=== PATIENT | female | born 1990 | race Caucasian/White ===

== ENCOUNTER 2017-09-28 08:12 | Emergency (ER) | payer OTHER ==
[~2017-09-28] VITALS: Ht 160 cm; Wt 66.2 kg
[2017-09-28 09:16] LABS: INFLUENZA A PATIENT NEGATIVE (NEGATIVE); INFLUENZA B PATIENT NEGATIVE (NEGATIVE)
[2017-09-28] MEDS ORDERED: HYDR115S2 PO (09:23)
[2017-09-28] MEDS ORDERED: AZIT250T PO (09:23)
--- NOTE | 2017-09-28 09:23 | PHYS DOC ---
Past History Past Medical History: Asthma, Ovarian Cyst, UTI, Other Past Surgical History: No Surgical History, Other Smoking: Non-smoker Alcohol Use: Rarely Drug Use: None Adult General Chief Complaint Chief Complaint: [facility]U [facility] 27-year-old male patient complaining of nasal congestion and cough and myalgia for the last 3 days that gradually getting worse. Patient complaining of subjective fever and chills and headache and sore throat and earache and not feeding quit. Patient denies vomiting, diarrhea, urinary symptoms, . Patient had sick contact at work. Review of Systems Review of Systems Constitutional: Reports fever and chills [] Eyes: Denies change in visual acuity, redness, or eye pain [] HENT: Reports nasal congestion and sore throat [] Respiratory: Reports cough and shortness of breath [] Cardiovascular: No additional information not addressed in HPI [] GI: Denies abdominal pain, nausea, vomiting, bloody stools or diarrhea [] : Denies dysuria or hematuria [] Musculoskeletal: Denies back pain or joint pain [] Integument: Denies rash or skin lesions [] Neurologic: Denies headache, focal weakness or sensory changes [] Endocrine: Denies polyuria or polydipsia [] All other systems were reviewed and found to be within normal limits, except as documented in this note. Allergies Allergies Allergies Coded Allergies Type Severity Reaction Last Updated Verified bupropion Allergy Severe HIVES 01/30/16 Yes Physical Exam Physical Exam Constitutional: Well developed, well nourished, mild distress, non-toxic appearance. [] HENT: Normocephalic, atraumatic, bilateral external ears normal, oropharynx moist, tonsillar erythema, no oral exudates, nasal congestion Eyes: PERRLA, EOMI, conjunctiva normal, no discharge. [] Neck: Normal range of motion, no tenderness, supple, no stridor. [] Cardiovascular:Heart rate regular rhythm, no murmur [] Lungs & Thorax: Bilateral breath sounds clear to auscultation [] Abdomen: Bowel sounds normal, soft, no tenderness, no masses, no pulsatile masses. [] Skin: Warm, dry, no erythema, no rash. [] Back: No tenderness, no CVA tenderness. [] Extremities: No tenderness, no cyanosis, no clubbing, ROM intact, no edema. [] Neurologic: Alert and oriented X 3, normal motor function, normal sensory function, no focal deficits noted. [] Psychologic: Affect normal, judgement normal, mood normal. [] Current Patient Data Lab Results Laboratory Tests Test 09/28/17 08:40 Influenza Type A (Rapid) Negative (NEGATIVE) Influenza Type B (Rapid) Negative (NEGATIVE) Group A Streptococcus Rapid Negative (NEGATIVE) EKG EKG [] Radiology/Procedures Radiology/Procedures [] Course & Med Decision Making Course & Med Decision Making Pertinent Labs reviewed. (See chart for details) Evaluation of patient in ER showed 27-year-old male patient complaining of upper respiratory symptoms for the last 3 days that getting worse. Patient had negative strep and flu test. Plan to discharge patient home with diagnosis of upper respiratory infection and prescription of Zithromax and Tussionex. [] Dragon Disclaimer Dragon Disclaimer This electronic medical record was generated, in whole or in part, using a voice recognition dictation system. Departure Departure: Impression: Primary Impression: Upper respiratory infection Disposition: HOME, SELF-CARE (at 0919) Condition: STABLE Referrals: CYNTHIA DIEZ (PCP) Patient Instructions: Upper Respiratory Infection, Adult Additional Instructions: Continue home nebulizer and inhaler Follow-up with your primary care physician in 3-5 days Return to ER if not getting better Scripts Azithromycin (ZITHROMAX) 250 Mg Tablet 1 PKG PO UD, #6 TAB Prov: IDA ELAIS MD 09/28/17 Hydrocodone/Chlorphen P-Stirex (Tussionex Pennkinetic Susp) 115 Ml Suad.er.12h 5 ML PO BID, #120 ML Prov: IDA ELIAS MD 09/28/17 IDA ELIAS MD Sep 28, 2017 09:23
[2017-09-28 09:45] VITALS: BP 138/86
== END 2017-09-28 09:45 | disposition home or self-care (01) ==
LOC: ER 08:12
DX: J06.9 Acute upper respiratory infection, unspecified (principal); J45.909 Unspecified asthma, uncomplicated; Z87.440 Personal history of urinary (tract) infections; Z88.8 Allergy status to other drugs, medicaments and biological substances
CPT/HCPCS: 87070; 87804; 87880; 99284

== ENCOUNTER 2017-12-18 20:55 | Emergency (ER) | payer OTHER ==
[~2017-12-18] VITALS: Ht 162.6 cm; Wt 69.9 kg
[~2017-12-18 20:55] MED LIST: AZIT250T PO; HYDR115S2 PO
[2017-12-18 21:05] VITALS: BP 180/88
--- NOTE | 2017-12-18 21:31 | PHYS DOC ---
Past History Past Medical History: Asthma, Ovarian Cyst, UTI, Other Past Surgical History: No Surgical History, Other Smoking: Non-smoker Alcohol Use: Occasionally Drug Use: None Adult General Chief Complaint Chief Complaint: WRIST PAIN HPI HPI Patient is a 27 year old female who presents with left wrist pain after a fall. patient fell backward onto outstretched left hand. Mechanical rather than secondary to syncope or dizziness. No head trauma or loss of consciousness. Right handed. Multiple bilateral wrist fractures as a child. Review of Systems Review of Systems Constitutional: Denies fever or chills HENT: Denies nasal congestion or sore throat Respiratory: Denies cough or shortness of breath Cardiovascular: Denies chest pain GI: Denies abdominal pain, nausea, vomiting Musculoskeletal: Reports wrist pain. Integument: Denies rash Neurologic: Denies headache All other systems were reviewed and found to be within normal limits, except as documented in this note. Allergies Allergies Allergies Coded Allergies Type Severity Reaction Last Updated Verified bupropion Allergy Severe HIVES 01/30/16 Yes Physical Exam Physical Exam Constitutional: Well developed, well nourished, no acute distress, non-toxic appearance. HENT: Normocephalic, atraumatic, bilateral external ears normal, oropharynx moist, nose normal. Eyes: conjunctiva normal, no discharge. Cardiovascular: no edema. Lungs & Thorax: no respiratory distress. Abdomen: nondistended. Skin: Warm, dry, no erythema, no rash. Extremities: left wrist tenderness with swelling to distal ulna, no distal radial tenderness, no snuffbox tenderness or metacarpal tenderness. limited ROM secondary to pain. no elbow tenderness. radial pulse 2+, radial/median/ ulnar nerve sensory & motor function intact. Neurologic: Alert and oriented X 3 Current Patient Data Vital Signs Vital Signs Date Time Temp Pulse Resp B/P (MAP) Pulse Ox O2 Delivery O2 Flow Rate FiO2 12/18/17 21:05 98.1 116 18 98 Room Air EKG EKG [] Radiology/Procedures Radiology/Procedures XR L wrist: interpreted by me: no fracture or dislocation, abnormal contour of the ulnar styloid, no acute process.[] Course & Med Decision Making Course & Med Decision Making Pertinent Labs and Imaging studies reviewed. (See chart for details) The patient presents with wrist pain after a fall. No fracture seen on x-ray. Provided removable wrist splint. Recommend rest, ice, elevation, ibuprofen for pain. Follow up with primary care in 1 week if not improving. Come back for neurovascular compromise or otherwise worsening condition. [] Dragon Disclaimer Dragon Disclaimer This electronic medical record was generated, in whole or in part, using a voice recognition dictation system. Departure Departure: Impression: Primary Impression: Wrist sprain Disposition: HOME, SELF-CARE Condition: STABLE Referrals: CYNTHIA DIEZ (PCP) Patient Instructions: Wrist Sprain with [facility] Additional Instructions: You were seen in the emergency department today for wrist pain. Your x-ray did not show a fracture. You can wear the splint for comfort, apply ice, keep elevated, take ibuprofen. Follow up with primary care in 1 week if not improving. Come back for numbness, cool fingers, severe pain or swelling, any otherwise worsening condition. STEFAN AZEVEDO MD Dec 18, 2017 21:31
--- NOTE | 2017-12-19 07:56 | RAD ---
Left wrist, 4 views, 12/18/2017: History: Wrist injury No fracture or dislocation is identified. The soft tissues are unremarkable. IMPRESSION: No acute left wrist abnormality is detected.
== END 2017-12-18 21:36 | disposition home or self-care (01) ==
LOC: ER 20:55
DX: S63.502A Unspecified sprain of left wrist, initial encounter (principal); R55 Syncope and collapse; J45.909 Unspecified asthma, uncomplicated; Z87.440 Personal history of urinary (tract) infections; Z88.4 Allergy status to anesthetic agent; W19.XXXA Unspecified fall, initial encounter; Y93.89 Activity, other specified; Y99.8 Other external cause status; Y92.89 Other specified places as the place of occurrence of the external cause
CPT/HCPCS: 29125; 73110; 99284

== ENCOUNTER → 2017-12-28 | Outpatient (CLI) | payer OTHER ==
[2017-12-18 21:05] VITALS: BP 180/88
--- NOTE | 2017-12-28 16:18 | RAD ---
Left wrist, 2 views, 12/28/2017: History: Left wrist pain Comparison is made to a study from 12/18/2017. No fracture or dislocation is identified. No significant arthritic change is seen. IMPRESSION: No significant left wrist abnormality is detected.
== END | disposition home or self-care (01) ==
LOC: RAD 15:56
PROVIDERS: ATTEND Physician Assistant
DX: M25.532 Pain in left wrist (principal); J45.909 Unspecified asthma, uncomplicated; Z91.81 History of falling
CPT/HCPCS: 73100

== ENCOUNTER → 2018-01-27 | Outpatient (CLI) | payer OTHER | END | disposition home or self-care (01) | LOC: LAB 08:52 | PROVIDERS: ATTEND Physician Assistant | DX: Z01.419 Encounter for gynecological examination (general) (routine) without abnormal findings (principal) | CPT/HCPCS: 36415 ==

== ENCOUNTER 2018-05-21 20:04 | Emergency (ER) | payer OTHER ==
[~2018-05-21] VITALS: Ht 162.6 cm; Wt 70.6 kg
--- NOTE | 2018-05-21 20:15 | ED.ADGEN ---
Past History Past Medical History: Asthma, Ovarian Cyst, UTI, Other Past Surgical History: No Surgical History, Other Smoking: Non-smoker Alcohol Use: Occasionally Drug Use: None Adult General Chief Complaint Chief Complaint ".. I ve been having this Migraine.. and it not gotten better.. I even had a Toradol shot.. but I still got this neck pain.. headache... 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 Pt. has hx. prior migraines, but none have lasted this long or this pronounce discomfort. Pt. had no recent travel but is around multiple sick patient during her work. Pt. denies any trauma or immunosuppression. Pain seems to primarily along posterior nucheal line or at muscle insertion cervical and right side of head. No Temporal artery tenderness noted. Has some Photophobia. Fundus limited but appear benign. Has had prior treatments with metoprolol and Imitrex with little effect. Review of Systems Review of Systems Constitutional: Denies fever or chills [] Eyes: Denies change in visual acuity, redness, or eye pain [] HENT: Denies nasal congestion or sore throat [] Neck pain. Respiratory: Denies cough or shortness of breath [] Cardiovascular: No additional information not addressed in HPI [] GI: Denies abdominal pain, nausea, vomiting, bloody stools or diarrhea [] : Denies dysuria or hematuria [] Musculoskeletal: Denies back pain or joint pain [] Integument: Denies rash or skin lesions [] Neurologic: Hx. of headache. No focal weakness or sensory changes [] Endocrine: Denies polyuria or polydipsia [] All other systems were reviewed and found to be within normal limits, except as documented in this note. Family History Family History Non-contributory Current Medications Current Medications Current Medications Medications (Trade) Dose Ordered Sig/Justina Start Time Stop Time Status Last Admin Dose Admin Clonidine HCl (Catapres) 0.2 mg 1X ONCE 05/21/18 21:00 05/21/18 21:01 DC 05/21/18 21:00 0.2 MG Ketorolac Tromethamine (Toradol 30mg Vial) 30 mg 1X ONCE 05/21/18 22:30 05/21/18 23:07 DC 05/21/18 22:48 30 MG Morphine Sulfate (Morphine 2mg Syringe) 2 mg 1X ONCE 05/21/18 21:00 05/21/18 21:01 DC 05/21/18 21:50 2 MG Ondansetron HCl (Zofran Odt) 8 mg 1X ONCE 05/21/18 20:30 05/21/18 20:31 DC 05/21/18 20:46 8 MG Orphenadrine Citrate (Norflex) 60 mg 1X ONCE 05/21/18 22:30 05/21/18 23:07 DC 05/21/18 22:48 60 MG Sodium Chloride 50 ml @ As Directed STK-MED ONCE 05/21/18 20:37 05/21/18 20:38 DC Valproic Acid (Depacon) 500 mg STK-MED ONCE 05/21/18 20:37 05/21/18 20:38 DC Valproic Acid 500 mg/Sodium Chloride 55 ml @ 55 mls/hr Q8HRS 05/21/18 21:00 05/21/18 23:25 DC 05/21/18 20:46 55 MLS/HR See Nursing for home meds Allergies Allergies Allergies Coded Allergies Type Severity Reaction Last Updated Verified bupropion Allergy Severe HIVES 01/30/16 Yes Physical Exam Physical Exam Constitutional: Well developed, well nourished, Moderately acute distress, non- toxic appearance. [] HENT: Normocephalic, atraumatic, bilateral external ears normal, oropharynx moist, no oral exudates, nose clear rhinorrhea mild injection. Eyes: PERRLA, EOMI, conjunctiva normal, no discharge. [Fundus as per HPI. ] Neck: Normal range of motion, muscle and insertion tenderness, Some spasms noted , supple but pain, no stridor. [] Cardiovascular:Heart rate regular rhythm, no murmur [] Lungs & Thorax: Bilateral breath sounds equal at apex on auscultation [] Abdomen: Bowel sounds normal, soft, no tenderness, no masses, no pulsatile masses. [] Skin: Warm, dry, no erythema, no rash. [] Back: No tenderness, no CVA tenderness. [] Extremities: No tenderness, no cyanosis, no clubbing, ROM intact, no edema. [] Neurologic: Alert and oriented X 3, normal motor function, normal sensory function, no focal deficits noted. []DTR + patella and brachial. Psychologic: Affect anxious, judgement normal, mood normal. [] Current Patient Data Vital Signs Vital Signs Date Time Temp Pulse Resp B/P (MAP) Pulse Ox O2 Delivery O2 Flow Rate FiO2 05/21/18 22:51 85 18 124/80 (95) 98 Room Air 05/21/18 20:18 98.6 Lab Results Laboratory Tests Test 05/21/18 19:51 05/21/18 20:30 POC Urine HCG, Qualitative hcg negative (Negative) White Blood Count 11.4 x10^3/uL (4.0-11.0) H Red Blood Count 4.55 x10^6/uL (3.50-5.40) Hemoglobin 13.3 g/dL (12.0-15.5) Hematocrit 39.2 % (36.0-47.0) Mean Corpuscular Volume 86 fL (79-100) Mean Corpuscular Hemoglobin 29 pg (25-35) Mean Corpuscular Hemoglobin Concent 34 g/dL (31-37) Red Cell Distribution Width 13.2 % (11.5-14.5) Platelet Count 248 x10^3/uL (140-400) Neutrophils (%) (Auto) 67 % (31-73) Lymphocytes (%) (Auto) 26 % (24-48) Monocytes (%) (Auto) 6 % (0-9) Eosinophils (%) (Auto) 1 % (0-3) Basophils (%) (Auto) 1 % (0-3) Neutrophils # (Auto) 7.6 x10^3uL (1.8-7.7) Lymphocytes # (Auto) 2.9 x10^3/uL (1.0-4.8) Monocytes # (Auto) 0.7 x10^3/uL (0.0-1.1) Eosinophils # (Auto) 0.1 x10^3/uL (0.0-0.7) Basophils # (Auto) 0.1 x10^3/uL (0.0-0.2) Erythrocyte Sedimentation Rate 8 (0-25) Prothrombin Time < 9.3 SEC (9.4-11.4) L Prothrombin Time INR 0.9 (0.9-1.1) PTT 24 SEC (23-33) Urine Collection Type Unknown Urine Color Yellow Urine Clarity Clear Urine pH 5.0 Urine Specific [place] 1.020 Urine Protein Neg (NEG-TRACE) Urine Glucose (UA) Neg mg/dL (NEG) Urine Ketones (Stick) Neg mg/dL (NEG) Urine Blood Mod (NEG) Urine Nitrite Neg (NEG) Urine Bilirubin Neg (NEG) Urine Urobilinogen Dipstick 0.2 mg/dL (0.2 mg/dL) Urine Leukocyte Esterase Neg (NEG) Urine RBC 0 /HPF (0-2) Urine WBC Rare /HPF (0-4) Urine Squamous Epithelial Cells Occ /LPF Urine Bacteria Few /HPF (0-FEW) Sodium Level 141 mmol/L (136-145) Potassium Level 3.5 mmol/L (3.5-5.1) Chloride Level 103 mmol/L (98-107) Carbon Dioxide Level 29 mmol/L (21-32) Anion Gap 9 (6-14) Blood Urea Nitrogen 9 mg/dL (7-20) Creatinine 0.8 mg/dL (0.6-1.0) Estimated GFR (Cockcroft-Gault) 84.8 Glucose Level 107 mg/dL (70-99) H Calcium Level 9.3 mg/dL (8.5-10.1) Magnesium Level 1.8 mg/dL (1.8-2.4) Creatine Kinase 52 U/L (26-192) Creatine Kinase MB (Mass) < 0.5 ng/mL (0.0-3.6) Creatine Kinase MB Relative Index 1.0 % (0-4) Troponin I Quantitative < 0.017 ng/mL (0-0.055) EKG EKG My interpretation of EKG- shows sinus 85, no acute.[] Radiology/Procedures Radiology/Procedures My interpretation of CT head shows no shift, mass, edema, bleed or fx. Neck portion shows no fx. or obvious impingement. Has some findings of cervical muscle spasms. Review final CT reading when available . [] Course & Med Decision Making Course & Med Decision Making Pertinent Labs and Imaging studies reviewed. (See chart for details). Discussed spinal tap. Patient declines spinal tap at this time and seems aware of benefits as well as complications of spinal tap Follow-up with neurology. Follow-up primary care. Take Flexeril 10 up to 3 times a day for muscle spasms. Return if any concerns. Zofran for nausea. Consider trial of Botox in the event this is muscle spasm induced. [] Final Impression Final Impression 1. Migraine [] 2. Very mild leukocytosis 3. Neck muscle spasm Dragon Disclaimer Dragon Disclaimer This electronic medical record was generated, in whole or in part, using a voice recognition dictation system. CHAS HOWARD MD May 21, 2018 20:15
[2018-05-21] MEDS ORDERED: ONDANSETRON ODT 4 MG TAB.RAPDIS PO ONE (20:30)
[2018-05-21] MEDS ORDERED: VALPROATE SODIUM 500 MG/5 ML VIAL IV ONE (20:37)
[2018-05-21] MEDS ORDERED: IV NORMAL SALINE 50ML 50 ML ONE (20:37)
[2018-05-21 20:53] LABS: BASO # 0.1 x10^3/uL (0.0-0.2); BASO % 1 % (0-3); EOS # 0.1 x10^3/uL (0.0-0.7); EOS % 1 % (0-3); HEMATOCRIT 39.2 % (36.0-47.0); HEMOGLOBIN 13.3 g/dL (12.0-15.5); LYMPH # 2.9 x10^3/uL (1.0-4.8); LYMPH % 26 % (24-48); MEAN CORPUSCULAR HEMOGLOBIN 29 pg (25-35); MEAN CORPUSCULAR HGB CONC 34 g/dL (31-37); MEAN CORPUSCULAR VOLUME 86 fL (79-100); MONO # 0.7 x10^3/uL (0.0-1.1); MONO % 6 % (0-9); NEUT # 7.6 x10^3uL (1.8-7.7); NEUT % 67 % (31-73); PLATELET COUNT 248 x10^3/uL (140-400); RED BLOOD COUNT 4.55 x10^6/uL (3.50-5.40); RED CELL DISTRIBUTION WIDTH 13.2 % (11.5-14.5); WHITE BLOOD COUNT 11.4 x10^3/uL (4.0-11.0)
[2018-05-21] MEDS ORDERED: VALPROATE SODIUM 500 MG in IV NORMAL SALINE 50ML 50 ML IV SCH (21:00)
[2018-05-21] MEDS ORDERED: cloNIDine HCL 0.1 MG TABLET PO ONE (21:00)
[2018-05-21] MEDS ORDERED: MORPHINE SULFATE 2 MG/ML DISP.SYRIN. IV ONE (21:00)
[2018-05-21 21:02] LABS: BILIRUBIN,URINE NEG (NEG); CLARITY,URINE CLEAR; COLOR,URINE YELLOW; GLUCOSE,URINE NEG (NEG)
[2018-05-21 21:03] LABS: BACTERIA,URINE FEW /HPF (0-FEW); NITRITE,URINE NEG (NEG); RBC,URINE 0 /HPF (0-2); SQUAMOUS EPITHELIAL CELL,UR OCC /LPF; UROBILINOGEN,URINE 0.2 mg/dL (0.2 mg/dL); WBC,URINE RARE /HPF (0-4)
[2018-05-21 21:07] LABS: ANION GAP 9 (6-14); BLOOD UREA NITROGEN 9 mg/dL (7-20); CALCIUM 9.3 mg/dL (8.5-10.1); CARBON DIOXIDE 29 mmol/L (21-32); CHLORIDE 103 mmol/L (98-107); CREATININE 0.8 mg/dL (0.6-1.0); GFR 84.8; GLUCOSE 107 mg/dL (70-99); MAGNESIUM 1.8 mg/dL (1.8-2.4); POTASSIUM 3.5 mmol/L (3.5-5.1); SODIUM 141 mmol/L (136-145)
--- NOTE | 2018-05-21 21:18 | EKG ---
[address] [address] Test Date: 2018-05-21 Test Time: 21:09:16 Pat Name: BRENDA BETANCUR Department: Room: Gender: F Stable Hand: : 1990 Requested By: CHAS HOWARD Order Number: [id number] Reading MD: Harshil Mota MD Measurements Intervals [place] Rate: 85 P: 48 MD: 144 QRS: 83 QRSD: 78 T: 36 QT: 360 QTc: 434 Interpretive Statements SINUS RHYTHM Electronically Signed On 05-22-2018 10:59:44 CDT by Harshil Mota MD
--- NOTE | 2018-05-21 21:33 | RAD ---
CT Head W/O Contrast: History: Severe headache, neck pain Comparison: none Axial images were obtained without contrast. The suárez and white matter appears normal and symmetrical for the patients age. There is no mass effect, extraaxial fluid collections or hydrocephalus. There is no gross bleed. There is no focal loss of suárez-white matter distinction to suggest acute ischemia, i.e. stroke. Impression: No acute findings. End impression CT C-Spine without contrast: Clinical History: Severe headache, neck pain Technique: Axial helical images of the cervical spine were obtained without contrast, axial coronal and sagittal reconstruction was performed. Findings: There is no loss of vertebral body stature. There is no prevertebral soft tissue swelling. The vertebral bodies are well aligned. The C1-C2 relationship is normal. The visualized osseous structures appear normal. There is mild reversal of the normal cervical lordosis which can be positional or can be secondary to muscle spasm. Evaluation of the central canal is limited without contrast. Impression: No acute findings. Clinical correlation suggested. PQRS Compliance Statement: One or more of the following individualized dose reduction techniques were utilized for this examination: 1. Automated exposure control 2. Adjustment of the mA and/or kV according to patient size 3. Use of iterative reconstruction technique Electronically signed by: Scott Chilel III, MD (05/21/2018 9:30 PM) [id number]
[2018-05-21] MEDS ORDERED: KETOROLAC 30 MG/ML VIAL. IV ONE (22:30)
[2018-05-21] MEDS ORDERED: ORPHENADRINE CITRATE 60 MG/2 ML VIAL. IV ONE (22:30)
[2018-05-21] MEDS ORDERED: HYDR-79 PO (22:31)
[2018-05-21] MEDS ORDERED: CYCL-331 PO (22:31)
[2018-05-21] MEDS ORDERED: ONDA8TAB12 PO (22:31)
[2018-05-21 22:51] VITALS: BP 124/80
== END 2018-05-21 23:10 | disposition home or self-care (01) ==
LOC: ER 20:04
DX: G43.909 Migraine, unspecified, not intractable, without status migrainosus (principal); D72.829 Elevated white blood cell count, unspecified; M54.2 Cervicalgia; J45.909 Unspecified asthma, uncomplicated; Z87.440 Personal history of urinary (tract) infections; Z88.8 Allergy status to other drugs, medicaments and biological substances
CPT/HCPCS: 36415; 70450; 72125; 80048; 81001; 81025; 82553; 83735; 84484; 85025; 85610; 85651; 85730; 93005; 96365; 96375; 99285; J1885; J2270; J2360; J3490; Q0162

== ENCOUNTER → 2018-05-23 | Outpatient (CLI) | payer OTHER ==
[2018-05-21 22:51] VITALS: BP 124/80
[~2018-05-23] MED LIST changes: +CYCL-331 PO; +HYDR-79 PO; +ONDA8TAB12 PO
[2018-05-24 02:07] LABS: TESTOSTERONE TOTAL 42 ng/dL (8-48)
[2018-05-24 14:04] LABS: FREE T4 0.96 ng/dL (0.76-1.46); THYROID STIM HORMONE (TSH) 1.345 uIU/mL (0.358-3.740)
== END | disposition home or self-care (01) ==
LOC: LAB 12:36
DX: G43.909 Migraine, unspecified, not intractable, without status migrainosus (principal); N39.0 Urinary tract infection, site not specified; R53.83 Other fatigue; Z88.8 Allergy status to other drugs, medicaments and biological substances; Z88.4 Allergy status to anesthetic agent
CPT/HCPCS: 36415; 82306; 82607; 84403; 84439; 84443; 84481

== ENCOUNTER → 2019-10-16 | Outpatient (CLI) | payer OTHER ==
[~2019-10-16] MED LIST changes: +HYDR-1179 PO; -HYDR-79 PO
--- NOTE | 2019-10-16 21:36 | RAD ---
3 view C-spine HISTORY: Pain AP lateral and open-mouth views The vertebral bodies aligned. There is no loss of vertebral body stature. There is no prevertebral soft tissue swelling. The C1-C2 relationship is normal. IMPRESSION: No acute findings. End impression Three view lumbosacral spine History: Pain AP, coned-down lateral and lateral views of the lumbosacral spine were obtained. The vertebral bodies are aligned. There is no loss of vertebral body stature. Intervertebral disc heights are preserved. Impression: No acute findings. End Impression Electronically signed by: Scott Chilel III, MD (10/16/2019 9:33 PM) [id number]
== END | disposition home or self-care (01) ==
LOC: PMG 13:20
PROVIDERS: ATTEND Physician Assistant Medical
DX: M54.5 Low back pain (principal); M54.2 Cervicalgia
CPT/HCPCS: 72040; 72100

== ENCOUNTER → 2020-04-09 | Outpatient (CLI) | payer OTHER | LOC: LAB 14:26 | PROVIDERS: ATTEND Internal Medicine Cardiovascular Disease | DX: Z20.828 Contact with and (suspected) exposure to other viral communicable diseases (principal) | CPT/HCPCS: 36415; U0003 ==

== ENCOUNTER → 2020-04-16 | Outpatient (CLI) | payer OTHER | END | disposition home or self-care (01) | LOC: LAB 11:55 | PROVIDERS: ATTEND Internal Medicine Cardiovascular Disease | DX: Z20.828 Contact with and (suspected) exposure to other viral communicable diseases (principal) | CPT/HCPCS: C9803; U0003; 36415 ==

== ENCOUNTER → 2020-05-29 | Outpatient (CLI) | payer OTHER | END | disposition home or self-care (01) | LOC: LAB 05:23 | PROVIDERS: ATTEND Internal Medicine Cardiovascular Disease | DX: Z20.828 Contact with and (suspected) exposure to other viral communicable diseases (principal) | CPT/HCPCS: U0003-CS ==

== ENCOUNTER → 2020-06-06 | Outpatient (CLI) | payer OTHER | END | disposition home or self-care (01) | LOC: LAB 15:17 | PROVIDERS: ATTEND Internal Medicine Cardiovascular Disease | DX: Z20.828 Contact with and (suspected) exposure to other viral communicable diseases (principal) | CPT/HCPCS: U0003-CS ==

== ENCOUNTER 2020-11-16 06:52 | Emergency (ER) | payer OTHER ==
[~2020-11-16] VITALS: Ht 162.6 cm; Wt 70.6 kg
[2020-11-16 06:52] VITALS: BP 113/94
[2020-11-16] MEDS ORDERED: IBUPROFEN 600 MG TABLET. PO ONE (07:00)
--- NOTE | 2020-11-16 07:26 | PHYS DOC ---
Past History Past Medical History: Asthma, Migraines, Ovarian Cyst, UTI, Other Past Surgical History: No Surgical History, Other Smoking: Non-smoker Alcohol Use: Occasionally Drug Use: None Adult General Chief Complaint Chief Complaint: WRIST PAIN HPI HPI Patient is a 30f presented to the emergency department with bilateral hand pain after fall. Patient states he was walking at work this morning when she slipped and fell on the ice falling forward and continues to open her hands. Denies any head injury or loss conscious. Patient is complaining of right-sided wrist pain and left fourth finger pain since that time. Denies any elbow or shoulder pain. Patient does note that she is concerned because she is fractured her right wrist twice in the past Review of Systems Review of Systems Constitutional: Denies fever or chills [] Eyes: Denies change in visual acuity, redness, or eye pain [] HENT: Denies nasal congestion or sore throat [] Respiratory: Denies cough or shortness of breath [] Cardiovascular: No additional information not addressed in HPI [] GI: Denies abdominal pain, nausea, vomiting, bloody stools or diarrhea [] : Denies dysuria or hematuria [] Musculoskeletal: Denies back pain or joint pain [] Integument: Denies rash or skin lesions [] Neurologic: Denies headache, focal weakness or sensory changes [] Endocrine: Denies polyuria or polydipsia [] All other systems were reviewed and found to be within normal limits, except as documented in this note. Current Medications Current Medications Current Medications Medications (Trade) Dose Ordered Sig/[facility] Start Time Stop Time Status Last Admin Dose Admin Ibuprofen (Motrin) 600 mg 1X ONCE 11/16/20 07:00 11/16/20 07:08 DC Allergies Allergies Allergies Coded Allergies Type Severity Reaction Last Updated Verified bupropion Allergy Severe HIVES 01/30/16 Yes Physical Exam Physical Exam Constitutional: Well developed, well nourished, no acute distress, non-toxic appearance. [] HENT: Normocephalic, atraumatic, bilateral external ears normal, oropharynx moist, no oral exudates, nose normal. [] Eyes: PERRLA, EOMI, conjunctiva normal, no discharge. [] Neck: Normal range of motion, no tenderness, supple, no stridor. [] Cardiovascular:Heart rate regular rhythm, no murmur [] Lungs & Thorax: Bilateral breath sounds clear to auscultation [] Abdomen: Bowel sounds normal, soft, no tenderness, no masses, no pulsatile masses. [] Skin: Warm, dry, no erythema, no rash. [] Back: No tenderness, no CVA tenderness. [] Extremities: Motor right-sided wrist tenderness just lateral to the snuffbox over the distal tendons, no cyanosis, no clubbing, ROM intact, no edema. [] Neurologic: Alert and oriented X 3, normal motor function, normal sensory function, no focal deficits noted. [] Psychologic: Affect normal, judgement normal, mood normal. [] Current Patient Data Vital Signs Vital Signs Date Time Temp Pulse Resp B/P (MAP) Pulse Ox O2 Delivery O2 Flow Rate FiO2 11/16/20 06:52 97.4 63 16 113/94 (100) 100 Room Air EKG EKG [] Radiology/Procedures Radiology/Procedures [] Heart Score Risk Factors: Risk Factors: DM, Current or recent (<one month) smoker, HTN, HLP, family history of CAD, obesity. Risk Scores: Risk Factors: DM, Current or recent (<one month) smoker, HTN, HLP, family history of CAD, obesity. Course & Med Decision Making Course & Med Decision Making Pertinent Labs and Imaging studies reviewed. (See chart for details) 30F presenting with minor injury to her hand. Will obtain x-rayse. X-ray reviewed by myself without any evidence of fracture. At this time I feel the patient be safely discharged home. Because of the location of the right- sided tenderness will provide a wrist splint Dragon Disclaimer Dragon Disclaimer This electronic medical record was generated, in whole or in part, using a voice recognition dictation system. Departure Departure: Impression: Primary Impression: Contusion of right wrist Additional Impressions: Contusion of left ring finger Fall Disposition: 01 DC HOME SELF CARE/HOMELESS Condition: GOOD Referrals: MELINDA FERMIN (PCP) Patient Instructions: Fall Prevention and Home Safety, Wrist Splint Additional Instructions: EMERGENCY DEPARTMENT GENERAL DISCHARGE INSTRUCTIONS Thank you for coming to [facility] (ED) today and trusting us with you care. We trust that you had a positive experience in our Emergency Department. If you wish to speak to the department management, you may call the Director at [phone]. YOUR FOLLOW UP INSTRUCTIONS ARE FOLLOWS: 1. Do you have a private Doctor? If you do not have a private doctor, please ask for a resource list of physicians or clinics that may be able to assist you with follow up care. 2. The Emergency Physicain has interpreted your x-rays. The X-Ray specialist will also review them. If there is a change in the findings, you will be notified in 48 hours when at all possible. 3. A lab test or culture has been done, your results will be reviewed and you will be notified if you need a change in treatment. ADDITIONAL INSTRUCTIONS AND INFORMATION: 1. Your care today has been supervised by a physician who is specially trained in emergency care. Many problems require more than one evaluation for a complete diagnosis and treatment. We recommend that you schedule your follow up appointment as recommended to ensure complete treatment of you illness or injury. If you are unable to obtain follow up care and continue to have a problem, or if your condition worsens, we recommend that you return to the ED. 2. We are not able to safely determine your condition over the phone nor are we able to give sound medical advice over the phone. For these safety reasons, if you call for medical advice we will ask you to come to the ED for further evaluation. 3. If you have any questions regarding these discharge instructions please call the ED at [phone]. SAFETY INFORMATION: In the interest of safety, wellness, and injury prevention; we encourage you to wear your sealbelt, if you smoke; quite smoking, and we encourage family to use a protective helmet for bicycling and other sporting events that present an increased risk for head injury. IF YOUR SYMPTOMS WORSEN OR NEW SYMPTOMS DEVELOP, OR YOU HAVE CONCERNS ABOUT YOUR CONDITION; OR IF YOUR CONDITION WORSENS WHILE YOU ARE WAITING FOR YOUR FOLLOW UP APPOINTMENT; EITHER CONTACT YOUR PRIMARY CARE DOCTOR, THE PHYSICIAN WHOSE NAME AND NUMBER YOU WERE GIVEN, OR RETURN TO THE ED IMMEDIATELY. Problem Qualifiers OPAL CARRIZALES MD Nov 16, 2020 07:26
--- NOTE | 2020-11-16 07:43 | RAD ---
INDICATION: Reason: fall / Spl. Instructions: / History: COMPARISON: December 2017 IMPRESSION: Right wrist: 3 views obtained. No definite acute fracture or dislocation. Left hand: 2 views obtained. No definite acute fracture or dislocation. Electronically signed by: Nazario Bansal MD (11/16/2020 7:40 AM) [id number]
== END 2020-11-16 07:55 | disposition home or self-care (01) ==
LOC: ER 06:52
DX: S60.211A Contusion of right wrist, initial encounter (principal); S60.042A Contusion of left ring finger without damage to nail, initial encounter; J45.909 Unspecified asthma, uncomplicated; G43.909 Migraine, unspecified, not intractable, without status migrainosus; Z87.440 Personal history of urinary (tract) infections; Z88.8 Allergy status to other drugs, medicaments and biological substances; W00.0XXA Fall on same level due to ice and snow, initial encounter; Y93.01 Activity, walking, marching and hiking; Y92.89 Other specified places as the place of occurrence of the external cause; Y99.8 Other external cause status
CPT/HCPCS: 29125; 73110; 73120; 99284

== ENCOUNTER → 2021-01-30 | Outpatient (CLI) | payer OTHER ==
--- NOTE | 2021-01-30 14:27 | RAD ---
AP Internal and external rotation views and axillary of the right shoulder were performed. Indication: Shoulder pain with scapular injury Comparison: None. No fracture, glenohumeral or AC joint subluxation, or significant degenerative changes are seen. The subacromial space is maintained. Impression: 1. Negative exam of the right shoulder. Electronically signed by: Abdias Medina MD (01/30/2021 2:25 PM) [id number]
== END ==
LOC: DXRAD 14:09
PROVIDERS: ATTEND Physician Assistant
DX: M25.511 Pain in right shoulder (principal)
CPT/HCPCS: 73030

== ENCOUNTER 2021-03-30 15:38 | Emergency (ER) | payer OTHER ==
[~2021-03-30] VITALS: Ht 162.6 cm; Wt 57.8 kg
[2021-03-30 16:05] VITALS: BP 126/75
[2021-03-30] MEDS ORDERED: PENI500T PO (16:52)
--- NOTE | 2021-03-30 16:53 | PHYS DOC ---
Past History Past Medical History: Asthma, Migraines, Ovarian Cyst, UTI, Other (TANNER LAN APRN) Past Surgical History: No Surgical History, Other (TANNER LAN APRN) Smoking: Non-smoker Alcohol Use: Occasionally Drug Use: None (TANNER LAN APRN) General Adult EDM: Chief Complaint: SORE THROAT HPI: HPI: Patient is a 31-year-old female who presents with sore throat and congestion since yesterday. Patient denies fever. Patient reports taking 800 mg ibuprofen and Benadryl with no relief. Denies cough, shortness of breath. Nausea/vomiting/diarrhea. Patient also has a history of asthma and migraines. (TANNER LAN APRN) Review of Systems: Review of Systems: Constitutional: Denies fever or chills Eyes: Denies change in visual acuity HENT: Reports nasal congestion and sore throat Respiratory: Denies cough or shortness of breath Cardiovascular: Denies chest pain or edema GI: Denies abdominal pain, nausea, vomiting, bloody stools or diarrhea : Denies dysuria Musculoskeletal: Denies back pain or joint pain Integument: Denies rash Neurologic: Denies headache, focal weakness or sensory changes Endocrine: Denies polyuria or polydipsia Lymphatic: Denies swollen glands Psychiatric: Denies depression or anxiety (TANNER LAN APRN) Allergies: Allergies: Allergies Coded Allergies Type Severity Reaction Last Updated Verified bupropion Allergy Severe HIVES 01/30/16 Yes (TANNER LAN APRN) Physical Exam: PE: Constitutional: Well developed, well nourished, no acute distress, non-toxic appearance. [] HENT: Normocephalic, atraumatic, bilateral external ears normal, oropharynx moist and irritated, no oral exudates, nose normal. [] Eyes: PERRLA, EOMI, conjunctiva normal, no discharge. [] Neck: Normal range of motion, no tenderness, supple, no stridor. [] Cardiovascular:Heart rate regular rhythm, no murmur [] Lungs & Thorax: Bilateral breath sounds clear to auscultation [] Abdomen: Bowel sounds normal, soft, no tenderness, no masses, no pulsatile masses. [] Skin: Warm, dry, no erythema, no rash. [] Back: No tenderness, no CVA tenderness. [] Extremities: No tenderness, no cyanosis, no clubbing, ROM intact, no edema. [] Neurologic: Alert and oriented X 3, normal motor function, normal sensory function, no focal deficits noted. [] Psychologic: Affect normal, judgement normal, mood normal. [] (TANNER LAN APRN) EKG: EKG: [] (TANNER LAN APRN) Radiology/Procedures: Radiology/Procedures: [] (TANNER LAN APRN) Heart Score: C/O Chest Pain: No Risk Factors: Risk Factors: DM, Current or recent (<one month) smoker, HTN, HLP, family history of CAD, obesity. Risk Scores: Score 0 - 3: 2.5% MACE over next 6 weeks - Discharge Home Score 4 - 6: 20.3% MACE over next 6 weeks - Admit for Clinical Observation Score 7 - 10: 72.7% MACE over next 6 weeks - Early Invasive Strategies (TNANER LAN APRN) Course & Med Decision Making: Course & Med Decision Making Pertinent Labs and Imaging studies reviewed. (See chart for details) [] 31-year-old female presents with sore throat and congestion since yesterday afebrile. Patient reports taking 800 milligrams ibuprofen. Patient has cervical lymphadenopathy, red irritated throat. No oral exudates. Rapid strep positive. Patient given dexamethasone in the emergency room to help with pain. Patient sent home with a prescription for amoxicillin. Patient instructed to follow-up with PCP if symptoms do not improve. She is appreciative and okay with discharge plan. (TANNER LAN APRN) Dragon Disclaimer: Meseret Disclaimer: This electronic medical record was generated, in whole or in part, using a voice recognition dictation system. (TANNER LAN APRN) Attending Co-Sign The patient was seen and interviewed as well as examined at the bedside. The chart was reviewed. The case was discussed. Agree with the plan of care. (ANDER RICHARDSON DO) Departure Departure: Impression: Primary Impression: Pharyngitis, streptococcal, acute Additional Impression: Congestion of nasal sinus Disposition: HOME / SELF CARE / HOMELESS Condition: STABLE Referrals: MELINDA FERMIN (PCP) Patient Instructions: Strep Throat, [id number] Additional Instructions: You are seen in the emergency room for sore throat and congestion. Your rapid strep was positive. I am sending you home with a prescription. I also gave you a dose of steroids in the emergency room. Please continue taking ibuprofen and Tylenol for discomfort or fever. Please follow-up with PCP if symptoms not improved. You can return to emergency room if you have worsening symptoms or concerns. EMERGENCY DEPARTMENT GENERAL DISCHARGE INSTRUCTIONS Thank you for coming to [place] [facility] (ED) today and trusting us with you care. We trust that you had a positivie experience in our Emergency Department. If you wish to speak to the department management, you may call the director at [phone]. YOUR FOLLOW UP INSTRUCTIONS ARE FOLLOWS: 1. Do you have a private Doctor? If you do not have a private doctor, please ask for a resource list of physicians or clinics that may be able to assist you with follow up care. 2. The Emergency Physician has interpreted your x-rays. The X-Ray specialist will also review them. If there is a change in the findings, you will be notified in 48 hours when at all possible. 3. A lab test or culture has been done, your results will be reviewed and you will be notified if you need a change in treatment. ADDITIONAL INSTRUCTIONS AND INFORMATION: 1. Your care today has been supervised by a physician who is specially trained in emergency care. Many problems require more than one evaluation for a complete diagnosis and treatment. We recommend that you schedule your follow up appointment as recommended to ensure complete treatment of you illness or injury. If you are unable to obtain follow up care and continue to have a problem, or if your condition worsens, we recommend that you return to the ED. 2. We are not able to safely determine your condition over the phone nor are we able to give sound medical advice over the phone. For these safety reasons, if you call for medical advice we will ask you to come to the ED for further evaluation. 3. If you have any questions regarding these discharge instructions please call the ED at [phone]. SAFETY INFORMATION: In the interest of safety, wellness, and injury prevention; we encourage you to wear your sealbelt, if you smoke; quite smoking, and we encourage family to use a protective helmet for bicycling and other sporting events that present an increased risk for head injury. IF YOUR SYMPTOMS WORSEN OR NEW SYMPTOMS DEVELOP, OR YOU HAVE CONCERNS ABOUT YOUR CONDITION; OR IF YOUR CONDITION WORSENS WHILE YOU ARE WAITING FOR YOUR FOLLOW UP APPO INTMENT; EITHER CONTACT YOUR PRIMARY CARE DOCTOR, THE PHYSICIAN WHOSE NAME AND NUMBER YOU WERE GIVEN, OR RETURN TO THE ED IMMEDIATELY. Scripts Penicillin V Potassium (PENICILLIN V POTASSIUM) 500 Mg Tablet 1 TAB PO BID for STREP for 10 Days, #20 TAB Prov: TANNER LAN APRN 03/30/21 TANNER LAN APRN Mar 30, 2021 16:52 ANDER RICHARDSON DO Mar 31, 2021 06:54
== END 2021-03-30 17:00 | disposition home or self-care (01) ==
LOC: ER 15:38
DX: J02.0 Streptococcal pharyngitis (principal); B95.0 Streptococcus, group A, as the cause of diseases classified elsewhere; J45.909 Unspecified asthma, uncomplicated; G43.909 Migraine, unspecified, not intractable, without status migrainosus; Z87.440 Personal history of urinary (tract) infections; Z88.8 Allergy status to other drugs, medicaments and biological substances
CPT/HCPCS: 87880; 99283

== ENCOUNTER → 2021-04-13 | Outpatient (CLI) | payer OTHER ==
[2021-03-30 16:05] VITALS: BP 126/75
[~2021-04-13] MED LIST changes: +PENI500T PO
[2021-04-13 16:04] LABS: INFLUENZA A PATIENT NEGATIVE (NEGATIVE); INFLUENZA B PATIENT NEGATIVE (NEGATIVE)
== END ==
LOC: LAB 14:35
PROVIDERS: ATTEND Physician Assistant
DX: J06.9 Acute upper respiratory infection, unspecified (principal); Z68.24 Body mass index [BMI] 24.0-24.9, adult
CPT/HCPCS: 87070; 87804

== ENCOUNTER → 2021-04-13 | Outpatient (CLI) | payer OTHER ==
[2021-03-30 16:05] VITALS: BP 126/75
== END ==
LOC: LAB 11:29
PROVIDERS: ATTEND Internal Medicine Cardiovascular Disease
DX: Z20.822 Contact with and (suspected) exposure to COVID-19 (principal)
CPT/HCPCS: C9803; U0003

== ENCOUNTER 2021-04-29 09:33 | Emergency (ER) | payer OTHER ==
[~2021-04-29] VITALS: Ht 162.6 cm; Wt 57.8 kg
--- NOTE | 2021-04-29 10:07 | PHYS DOC ---
Past History Past Medical History: Asthma, Migraines, Ovarian Cyst, UTI, Other (ESPINOZA HENDERSON APRN) Past Surgical History: No Surgical History, Tonsillectomy, Other Additional Past Surgical Histo: EUSTACIAN TUBES (ESPINOZA HENDERSON APRN) Smoking: Non-smoker Alcohol Use: Occasionally Drug Use: None (ESPINOZA HENDERSON APRN) General Adult HPI: HPI: Patient is a 31-year-old female presents to the ER today for sore throat, dry cough and pain with swallowing. Patient reports that she had strep in March and was treated with penicillin she reports that her symptoms never improved and 2 weeks later she. Patient has a T&A. Patient denies fever, shortness of breath, difficulty swallowing. (ESPINOZA HENDERSON APRN) Review of Systems: Review of Systems: 14 body systems of the review of systems have been reviewed. See HPI for pertinent positive and negative responses, otherwise all other systems are negative, nonpertinent or noncontributory (ESPINOZA HENDERSON APRN) Allergies: Allergies: Allergies Coded Allergies Type Severity Reaction Last Updated Verified bupropion Allergy Severe HIVES 01/30/16 Yes (ESPINOZA HENDERSON APRN) Physical Exam: PE: Constitutional: Well developed, well nourished, no acute distress, non-toxic appearance. [] HENT: Normocephalic, atraumatic, bilateral external ears normal, oropharynx moist, erythematous pharynx, no oral exudates, nose normal. [] Eyes: PERRL, conjunctiva normal, no discharge. [] Neck: Normal range of motion, no tenderness, supple, no stridor, bilateral tonsillar lymphadenopathy. [] Cardiovascular:Heart rate regular rhythm, no murmur [] Lungs & Thorax: Bilateral breath sounds clear to auscultation [] Skin: Warm, dry, no erythema, no rash. [] Back: Normal range of motion Extremities: No tenderness, no cyanosis, no clubbing, ROM intact, no edema. [] Neurologic: Alert and oriented X 3, normal motor function, normal sensory function, no focal deficits noted. [] Psychologic: Affect normal, judgement normal, mood normal. [] (ESPINOZA HENDERSON APRN) Current Patient Data: Labs: Laboratory Tests Test 04/29/21 10:11 Heterophil Agglutinins Negative Current Medications Medications (Trade) Dose Ordered Sig/Justina Route PRN Reason Start Time Stop Time Status Last Admin Dose Admin Ceftriaxone Sodium (Rocephin Im) 1 gm 1X ONCE IM 04/29/21 11:00 04/29/21 11:01 (ESPINOAZ HENDERSON APRN) EKG: EKG: [] (ESPINOZA HENDERSON APRN) Radiology/Procedures: Radiology/Procedures: [] (ESPINOZA HENDERSON APRN) Heart Score: C/O Chest Pain: No Risk Factors: Risk Factors: DM, Current or recent (<one month) smoker, HTN, HLP, family history of CAD, obesity. Risk Scores: Score 0 - 3: 2.5% MACE over next 6 weeks - Discharge Home Score 4 - 6: 20.3% MACE over next 6 weeks - Admit for Clinical Observation Score 7 - 10: 72.7% MACE over next 6 weeks - Early Invasive Strategies (ESPINOZA HENDERSON APRN) Course & Med Decision Making: Course & Med Decision Making Pertinent Labs and Imaging studies reviewed. (See chart for details) Patient is a 31-year-old female being seen for a sore throat. She was tested for strep, mono, COVID-19. Patient was seen in March for similar symptoms and was placed on penicillin and after failed treatment clindamycin. Her throat culture back in March was positive for group a strep. Patient was positive for strep. Patient given a dose of Rocephin in the ER. She was discharged with cefdinir. I discussed with patient all findings and diagnostic testing as well as the need to follow-up with PCP for further evaluation and treatment or return to the ER if any new or worsening symptoms. Strict return precautions were also discussed at length. Patient voiced understanding and agreement with the plan. Patient is hemodynamically stable at the time of disposition. (ESPINOZA HENDERSON APRN) Dragon Disclaimer: Dragon Disclaimer: This electronic medical record was generated, in whole or in part, using a voice recognition dictation system. (ESPINOZA HENDERSON APRN) Attending Co-Sign The patient was seen and interviewed as well as examined at the bedside. The chart was reviewed. The case was discussed. Agree with the plan of care. (ANDER RICHARDSON DO) Departure Departure: Impression: Primary Impression: Strep pharyngitis Disposition: HOME / SELF CARE / HOMELESS Condition: GOOD Referrals: GUERO PATTEN APRN (PCP) Patient Instructions: Strep Throat Additional Instructions: You were seen in the ER today for sore throat. Your mono test was negative. You were tested in the ER for COVID-19. Although unlikely that you do have a Covid infection, please self isolate until you receive these results. Your rapid strep test was positive. You were given a dose of IM antibiotic in the ER. You are being discharged home with a prescription for cefdinir. Please start and finish this medication completely. You can take Tylenol or ibuprofen for pain or fevers. Warm salt water gargles for sore throat. It may be beneficial for you to take a throat culture once your symptoms start improving to determine if you are a carrier for strep. If your symptoms worsen you develop difficulty swallowing, shortness of breath, high fevers refractory to treatment please return to the ER. Follow up with your primary care provider if symptoms persist. EMERGENCY DEPARTMENT GENERAL DISCHARGE INSTRUCTIONS Thank you for coming to [place] [facility] (ED) today and trusting us with you care. We trust that you had a positivie experience in our Emergency Department. If you wish to speak to the department management, you may call the director at [phone]. YOUR FOLLOW UP INSTRUCTIONS ARE FOLLOWS: 1. Do you have a private Doctor? If you do not have a private doctor, please ask for a resource list of physicians or clinics that may be able to assist you with follow up care. 2. The Emergency Physician has interpreted your x-rays. The X-Ray specialist will also review them. If there is a change in the findings, you will be notified in 48 hours when at all possible. 3. A lab test or culture has been done, your results will be reviewed and you w ill be notified if you need a change in treatment. ADDITIONAL INSTRUCTIONS AND INFORMATION: 1. Your care today has been supervised by a physician who is specially trained in emergency care. Many problems require more than one evaluation for a complete diagnosis and treatment. We recommend that you schedule your follow up appointment as recommended to ensure complete treatment of you illness or injury. If you are unable to obtain follow up care and continue to have a problem, or if your condition worsens, we recommend that you return to the ED. 2. We are not able to safely determine your condition over the phone nor are we able to give sound medical advice over the phone. For these safety reasons, if you call for medical advice we will ask you to come to the ED for further evaluation. 3. If you have any questions regarding these discharge instructions please call the ED at [phone]. SAFETY INFORMATION: In the interest of safety, wellness, and injury prevention; we encourage you to wear your sealbelt, if you smoke; quite smoking, and we encourage family to use a protective helmet for bicycling and other sporting events that present an increased risk for head injury. IF YOUR SYMPTOMS WORSEN OR NEW SYMPTOMS DEVELOP, OR YOU HAVE CONCERNS ABOUT YOUR CONDITION; OR IF YOUR CONDITION WORSENS WHILE YOU ARE WAITING FOR YOUR FOLLOW UP APPOINTMENT; EITHER CONTACT YOUR PRIMARY CARE DOCTOR, THE PHYSICIAN WHOSE NAME AND NUMBER YOU WERE GIVEN, OR RETURN TO THE ED IMMEDIATELY. Scripts Cefdinir (CEFDINIR) 300 Mg Capsule 1 CAP PO BID for strep pharyngitis for 10 Days, #20 CAP 0 Refills Prov: ESPINOZA HENDERSON APRN 04/29/21 ESPINOZA HENDERSON APRN Apr 29, 2021 10:07 ANDER RICHARDSON DO Apr 30, 2021 06:29
[2021-04-29 10:08] VITALS: BP 120/80
[2021-04-29 10:48] LABS: MONONUCLEOSIS PATIENT NEGATIVE (NEGATIVE)
[2021-04-29] MEDS ORDERED: CEFD300C PO (10:56)
[2021-04-29] MEDS ORDERED: cefTRIAXone IM 1 GM VIAL IM ONE (11:00)
[2021-04-29] MEDS ORDERED: LIDOCAINE 1% Multi-Dose 20 ML VIAL. ONE (11:29)
== END 2021-04-29 11:41 | disposition home or self-care (01) ==
LOC: ER 09:33
DX: U07.1 COVID-19 (principal); J02.0 Streptococcal pharyngitis; J45.909 Unspecified asthma, uncomplicated; G43.909 Migraine, unspecified, not intractable, without status migrainosus; Z87.440 Personal history of urinary (tract) infections; Z88.8 Allergy status to other drugs, medicaments and biological substances
CPT/HCPCS: 86308; 87426; 87880; 96372; 99283; J0696; U0003

== ENCOUNTER → 2021-05-18 | Outpatient (CLI) | payer OTHER ==
[2021-04-29 10:08] VITALS: BP 120/80
[~2021-05-18] MED LIST changes: +CEFD300C PO
[2021-05-18 08:55] LABS: BASO # 0.1 x10^3/uL (0.0-0.2); BASO % 1 % (0-3); EOS % 1 % (0-3); HEMATOCRIT 40.1 % (36.0-47.0); HEMOGLOBIN 13.2 g/dL (12.0-15.5); LYMPH # 1.7 x10^3/uL (1.0-4.8); LYMPH % 26 % (24-48); MEAN CORPUSCULAR HEMOGLOBIN 30 pg (25-35); MEAN CORPUSCULAR HGB CONC 33 g/dL (31-37); MEAN CORPUSCULAR VOLUME 92 fL (79-100); MONO # 0.4 x10^3/uL (0.0-1.1); MONO % 6 % (0-9); NEUT # 4.2 x10^3uL (1.8-7.7); NEUT % 66 % (31-73); PLATELET COUNT 207 x10^3/uL (140-400); RED BLOOD COUNT 4.35 x10^6/uL (3.50-5.40); WHITE BLOOD COUNT 6.4 x10^3/uL (4.0-11.0)
[2021-05-18 09:14] LABS: ALBUMIN 3.8 g/dL (3.4-5.0); ALBUMIN/GLOBULIN RATIO 1.1 (1.0-1.7); CALCIUM 8.7 mg/dL (8.5-10.1); CREATININE 1.1 mg/dL (0.6-1.0); GFR 57.6; TOTAL BILIRUBIN 0.2 mg/dL (0.2-1.0); TOTAL PROTEIN 7.3 g/dL (6.4-8.2)
[2021-05-18 17:08] LABS: FREE T4 1.08 ng/dL (0.76-1.46); THYROID STIM HORMONE (TSH) 2.53 uIU/mL (0.358-3.740)
== END ==
LOC: LAB 08:04
PROVIDERS: ATTEND Nurse Practitioner Women's Health
DX: Z00.00 Encounter for general adult medical examination without abnormal findings (principal); Z13.1 Encounter for screening for diabetes mellitus; Z13.220 Encounter for screening for lipoid disorders; Z13.21 Encounter for screening for nutritional disorder; J03.01 Acute recurrent streptococcal tonsillitis
CPT/HCPCS: 36415; 80053; 80061; 82306; 84439; 84443; 84481; 85025; 87070

== ENCOUNTER → 2021-08-19 | Outpatient (CLI) | payer OTHER ==
[~2021-08-19] MED LIST changes: -CYCL-331 PO; +CYCL10TA19 PO
== END ==
LOC: LAB 10:57
PROVIDERS: ATTEND Internal Medicine Cardiovascular Disease
DX: R05.9 Cough, unspecified (principal); J02.9 Acute pharyngitis, unspecified; R09.81 Nasal congestion; Z20.822 Contact with and (suspected) exposure to COVID-19
CPT/HCPCS: 87426; U0003

== ENCOUNTER → 2021-09-10 | Outpatient (CLI) | payer OTHER ==
[2021-09-10 07:31] LABS: BASO # 0.1 x10^3/uL (0.0-0.2); BASO % 1 % (0-3); EOS % 0 % (0-3); HEMATOCRIT 38.4 % (36.0-47.0); HEMOGLOBIN 12.7 g/dL (12.0-15.5); LYMPH % 35 % (24-48); MEAN CORPUSCULAR HEMOGLOBIN 30 pg (25-35); MEAN CORPUSCULAR HGB CONC 33 g/dL (31-37); MEAN CORPUSCULAR VOLUME 90 fL (79-100); MONO # 0.5 x10^3/uL (0.0-1.1); MONO % 8 % (0-9); NEUT # 3.3 x10^3uL (1.8-7.7); NEUT % 57 % (31-73); PLATELET COUNT 215 x10^3/uL (140-400); RED CELL DISTRIBUTION WIDTH 13.3 % (11.5-14.5); WHITE BLOOD COUNT 5.9 x10^3/uL (4.0-11.0)
[2021-09-10 10:22] LABS: ALBUMIN 3.6 g/dL (3.4-5.0); CALCIUM 8.6 mg/dL (8.5-10.1); GFR 64.3; POTASSIUM 4.3 mmol/L (3.5-5.1); TOTAL BILIRUBIN 0.5 mg/dL (0.2-1.0); TOTAL PROTEIN 7.2 g/dL (6.4-8.2)
[2021-09-10 19:45] LABS: FREE T4 1.05 ng/dL (0.76-1.46); THYROID STIM HORMONE (TSH) 2.069 uIU/mL (0.358-3.740)
== END ==
LOC: LAB 06:49
PROVIDERS: ATTEND Nurse Practitioner Women's Health
DX: Z00.00 Encounter for general adult medical examination without abnormal findings (principal); Z13.220 Encounter for screening for lipoid disorders; Z13.21 Encounter for screening for nutritional disorder; Z13.29 Encounter for screening for other suspected endocrine disorder; Z13.1 Encounter for screening for diabetes mellitus
CPT/HCPCS: 36415; 80053; 80061; 82306; 84439; 84443; 84481; 85025